=== PATIENT | male | born 1995 | race Hispanic/Latino ===

== ENCOUNTER 2022-06-18 22:00 | Emergency (ER) | payer OTHER, SELFPAY ==
[2022-06-18] MEDS ORDERED: ACETAMINOPHEN 500 MG TAB ONE (22:54)
--- NOTE | 2022-06-18 23:00 | EDPHYS ---
Physician Documentation [facility] Name: Giles Garcia Jr Age: 26 yrs Sex: Male : 1995 Arrival Date: 06/18/2022 Time: 22:07 Bed IW4 Private MD: ED Physician Aly Guerra HPI: 06/18 22:58 This 26 yrs old Male presents to ER via Ambulatory with complaints of KOVID snw SYMPTOMS. 22:58 The patient or guardian reports cough, flu symptoms, low-grade fever, myalgias, no snw appetite. Onset: The symptoms/episode began/occurred suddenly, 1 day(s) ago, and became persistent. Modifying factors: The symptoms are alleviated by nothing. the symptoms are aggravated by lying flat. Severity of symptoms: At their worst the symptoms were mild moderate in the emergency department the symptoms are unchanged. The patient has not experienced similar symptoms in the past. The patient has not recently seen a physician. home Covid test +. Historical: - Allergies: 22:47 No Known Allergies; bb - Home Meds: 22:47 None [Active]; bb - PMHx: 22:47 None; bb - PSHx: 22:47 None; bb - Immunization history:: Client reports receiving the 2nd dose of the Covid vaccine, Pfizer x 2. - Social history:: Smoking status: Patient denies any tobacco usage or history of. ROS: 22:57 Eyes: Negative for injury, pain, redness, and discharge. snw 22:57 Neck: Negative for injury, pain, and swelling, Cardiovascular: Negative for chest pain, palpitations, and edema. 22:57 Abdomen/GI: Negative for abdominal pain, nausea, vomiting, diarrhea, and constipation, Back: Negative for injury and pain, : Negative for injury, bleeding, discharge, and swelling, MS/Extremity: Negative for injury and deformity, Skin: Negative for injury, rash, and discoloration, Neuro: Negative for headache, weakness, numbness, tingling, and seizure, Psych: Negative for depression, anxiety, suicide ideation, homicidal ideation, and hallucinations. 22:57 Constitutional: Positive for body aches, fatigue, fever, malaise, poor PO intake. 22:57 ENT: Positive for ear pain. 22:57 Respiratory: Positive for cough. Exam: 22:56 Head/Face: Normocephalic, atraumatic. Eyes: Pupils equal round and reactive to light, snw extra-ocular motions intact. Lids and lashes normal. Conjunctiva and sclera are non-icteric and not injected. Cornea within normal limits. Periorbital areas with no swelling, redness, or edema. 22:56 Neck: Trachea midline, no thyromegaly or masses palpated, and no cervical lymphadenopathy. Supple, full range of motion without nuchal rigidity, or vertebral point tenderness. No Meningismus. Chest/axilla: Normal chest wall appearance and motion. Nontender with no deformity. No lesions are appreciated. 22:56 Abdomen/GI: Soft, non-tender, with normal bowel sounds. No distension or tympany. No guarding or rebound. No evidence of tenderness throughout. Back: No spinal tenderness. No costovertebral tenderness. Full range of motion. Skin: Warm, dry with normal turgor. Normal color with no rashes, no lesions, and no evidence of cellulitis. MS/ Extremity: Pulses equal, no cyanosis. Neurovascular intact. Full, normal range of motion. Neuro: Awake and alert, GCS 15, oriented to person, place, time, and situation. Cranial nerves II-XII grossly intact. Motor strength 5/5 in all extremities. Sensory grossly intact. Cerebellar exam normal. Normal gait. Psych: Awake, alert, with orientation to person, place and time. Behavior, mood, and affect are within normal limits. 22:56 Constitutional: The patient appears alert, awake, febrile, uncomfortable. 22:56 ENT: External ear(s): are unremarkable, Ear canal(s): are normal, TM's: erythema, that is moderate, on the left, Nose: is normal, Mouth: is normal, Posterior pharynx: is normal, Voice: is normal. 22:56 Cardiovascular: Rate: tachycardic, Rhythm: regular, Pulses: no pulse deficits are appreciated. 22:56 Respiratory: the patient does not display signs of respiratory distress, Respirations: normal, Breath sounds: bronchial sounds, + upper airway congestion. bronchitic cough. Vital Signs: 22:45 BP 126 / 86; Pulse 115; Resp 18 S; Temp 100.1(O); Pulse Ox 100% on R/A; Weight 117.93 bb kg (R); Height 5 ft. 8 in. (172.72 cm) (R); Pain 8/10; 23:38 Temp 99.6(O); bb 22:45 Body Mass Index 39.53 (117.93 kg, 172.72 cm) bb MDM: 22:53 Patient medically screened. snw 22:58 Data reviewed: vital signs, nurses notes. Data interpreted: Pulse oximetry: on room air snw is 100 %. Interpretation: normal. Counseling: I had a detailed discussion with the patient and/or guardian regarding: the historical points, exam findings, and any diagnostic results supporting the discharge/admit diagnosis, the need for outpatient follow up, to return to the emergency department if symptoms worsen or persist or if there are any questions or concerns that arise at home. Special discussion: Based on the history and exam findings, there is no indication for further emergent testing or inpatient evaluation. I discussed with the patient/guardian the need to see the primary care provider for further evaluation of the symptoms. 06/18 22:08 Order name: COVID-19/FLU A+B; Complete Time: 23:38 snw Administered Medications: 22:55 Drug: Tylenol 1000 mg Route: PO; bb 23:38 Follow up: Response: Temperature is decreased bb Disposition Summary: 06/18/22 22:59 Discharge Ordered Location: Home snw Condition: Stable snw Diagnosis - SARS-associated coronavirus as the cause of diseases classified elsewhere snw Followup: snw - With: Emergency Department - When: As needed - Reason: Trouble breathing, Worsening of condition Followup: snw - With: Private Physician - When: 5 - 6 days - Reason: Recheck today's complaints, Continuance of care, Re-evaluation by your physician Discharge Instructions: - Discharge Summary Sheet snw - Aspirin and Your Heart snw - COVID-19 snw - 10 Things You Can Do to Manage Your COVID-19 Symptoms at Home - [facility] snw - COVID-19: Quarantine vs. Isolation - [facility] snw Forms: - Medication Reconciliation Form snw - Thank You Letter snw - Antibiotic Education snw - Work release form snw - Prescription Opioid Use snw Prescriptions: - Zyrtec 10 mg Oral Tablet - take 1 tablet by ORAL route once daily As needed; 20 tablet; Refills: 0, snw Product Selection Permitted - Prednisone 20 mg Oral Tablet - take 2 tablets by ORAL route once daily for 5 days; 10 tablet; Refills: 0, snw Product Selection Permitted - Pepcid 20 mg Oral Tablet - take 1 tablet by ORAL route once daily; 20 tablet; Refills: 0, Product snw Selection Permitted - Zithromax 500 mg Oral Tablet - take 1 tablet by ORAL route once daily for 5 days; 5 tablet; Refills: 0, snw Product Selection Permitted Signatures: Dispatcher [employer] Cari Jeffery, JOSE-C BUCKLE ASSEMBLER-Csnw Eleonora Zavala, RN RN bb
--- NOTE | 2022-06-18 23:00 | ER ---
Nurse's Notes [facility] Name: Giles Garcia Jr Age: 26 yrs Sex: Male : 1995 Arrival Date: 06/18/2022 Time: 22:07 Bed IW4 Private MD: Diagnosis: SARS-associated coronavirus as the cause of diseases classified elsewhere Presentation: 06/18 22:43 Chief complaint: Patient states: he is having shortness of breath, fever, bb light-headedness since last night with chest pain. Coronavirus screen: Client presents with at least one sign or symptom that may indicate coronavirus-19. 22:43 Method Of Arrival: Ambulatory bb 22:45 Ebola Screen: No symptoms or risks identified at this time. Initial Sepsis Screen: Does bb the patient meet any 2 criteria? No. Patient's initial sepsis screen is negative. Does the patient have a suspected source of infection? No. Patient's initial sepsis screen is negative. Risk Assessment: Do you want to hurt yourself or someone else? Patient reports no desire to harm self or others. Note pt states he did a home test and was positive for Covid. Onset of symptoms was June 17, 2022. 22:45 Acuity: ARCHIE 3 bb Triage Assessment: 22:47 General: Appears in no apparent distress. uncomfortable, Behavior is calm, cooperative. bb Pain: Complains of pain in chest Pain currently is 8 out of 10 on a pain scale. Neuro: Level of Consciousness is awake, alert, obeys commands, Oriented to person, place, time, situation. Cardiovascular: Capillary refill < 3 seconds Patient's skin is warm and dry. Respiratory: Respiratory effort is unlabored. GI: No signs and/or symptoms were reported involving the gastrointestinal system. Derm: Skin is pink, warm \T\ dry. Musculoskeletal: Circulation, motion, and sensation intact. Historical: - Allergies: 22:47 No Known Allergies; bb - Home Meds: 22:47 None [Active]; bb - PMHx: 22:47 None; bb - PSHx: 22:47 None; bb - Immunization history:: Client reports receiving the 2nd dose of the Covid vaccine, Pfizer x 2. - Social history:: Smoking status: Patient denies any tobacco usage or history of. Screenin:43 [facility] ED Fall Risk Assessment (Adult) History of falling in the last 3 months, bb including since admission No falls in past 3 months (0 pts). Abuse screen: Denies threats or abuse. Nutritional screening: No deficits noted. Tuberculosis screening: No symptoms or risk factors identified. Assessment: 23:43 Reassessment: Patient is alert, oriented x 3, equal unlabored respirations, skin bb warm/dry/pink. pt requested IV fluids, notified Cari Ritter MOTION PICTURE OPERATOR who states there is no medical necessity at this time for IV fluids instructed pt oral fluids would do just as good at this time. Pt given discharge instructions and ambulated with steady gait to exit accompanied by family. Vital Signs: 22:45 BP 126 / 86; Pulse 115; Resp 18 S; Temp 100.1(O); Pulse Ox 100% on R/A; Weight 117.93 bb kg (R); Height 5 ft. 8 in. (172.72 cm) (R); Pain 8/10; 23:38 Temp 99.6(O); bb 22:45 Body Mass Index 39.53 (117.93 kg, 172.72 cm) bb ED Course: 22:07 Patient arrived in ED. es 22:08 [facility]-C [facility] snw 22:08 Aly Guerra MD is Attending Physician. snw 22:47 Triage completed. bb 22:47 Arm band placed on Patient placed in waiting room, Patient notified of wait time. bb 22:49 Antipyretics given from triage as ordered by an ER provider. bb 22:55 COVID-19/FLU A+B Sent. bb 23:43 Patient has correct armband on for positive identification. Adult w/ patient. bb 23:43 No provider procedures requiring assistance completed. Patient did not have IV access bb during this emergency room visit. Administered Medications: 22:55 Drug: Tylenol 1000 mg Route: PO; bb 23:38 Follow up: Response: Temperature is decreased bb Medication: 23:43 VIS not applicable for this client. bb Outcome: 22:59 Discharge ordered by . snw 23:43 Discharged to home ambulatory, with family. bb 23:43 Condition: stable 23:43 Discharge instructions given to patient, Instructed on discharge instructions, follow up and referral plans. medication usage, Demonstrated understanding of instructions, follow-up care, medications, Prescriptions given X 4. 23:46 Patient left the ED. bb Signatures: Cari Ritter, BLINDMAKER-C BLINDMAKER-Csnw Akanksha Major Brenda, RN RN bb
[2022-06-18 23:38] LABS: SARS-COV-2 RT PCR POSITIVE (NEGATIVE)
[2022-06-19 00:11] VITALS: TEMP 99.6
[2022-06-19 00:12] VITALS: BP 126/86; O2SAT 100
== END 2022-06-18 23:46 | disposition home or self-care (01) ==
LOC: ER 22:00
DX: U07.1 COVID-19 (principal)
CPT/HCPCS: 0240U